=== PATIENT | male | born 1955 | race Two or more races ===

== ENCOUNTER 2023-02-17 10:32 | Emergency (ER) | payer MEDICARE ==
[2023-02-17 11:05] LABS: HEMATOCRIT 38.9 % (38.4-49.7); HEMOGLOBIN 13.3 g/dL (12.9-16.9); MEAN CORPUSCULAR HEMOGLOBIN 32.6 pg (31.6-35.5); MEAN CORPUSCULAR HGB CONC 34.2 g/dL (31.6-35.5); MEAN CORPUSCULAR VOLUME 95.3 fL (81.4-99.0); RED BLOOD CELL COUNT 4.08 M/uL (4.14-5.76); WHITE BLOOD CELL COUNT,WBC 7.3 K/uL (3.2-11.0)
[2023-02-17] MEDS: Nitroglycerin 0.4 MG Tab.SL SL PRN ×3 (11:14→11:26)
[2023-02-17 11:21] LABS: INR 2.1; PROTHROMBIN TIME 20.1 sec (9.2-10.6)
[2023-02-17 11:33] LABS: ALANINE AMINOTRANSFERASE,ALT 22 U/L (12-78); ALBUMIN 3.3 g/dL (3.4-5.0); ALKALINE PHOSPHATASE 82 U/L (46-116); ANION GAP 15.4 mmol/L (5.0-14.0); ASPARTATE AMNIOTRANSFERASE,AST 16 U/L (15-37); BILIRUBIN TOTAL 0.7 mg/dL (0.2-1.0); BLOOD UREA NITROGEN,BUN 11 mg/dL (7-18); CALCIUM 8.8 mg/dL (8.5-10.1); CARBON DIOXIDE,CO2 25 mmol/L (21-32); CHLORIDE,CL 102 mmol/L (100-108); CREATININE 0.9 mg/dL (0.8-1.3); EST CRCL DRUG DOSING (CG) 97.78 mL/min; ESTIMATED GFR 94 mL/min (>60); GLUCOSE RANDOM 265 mg/dL (74-106); POTASSIUM,K 4.4 mmol/L (3.6-5.2); PRO B-TYPE NATRIUR PEPT,BNPPRO 109 pg/mL (5-125); PROTEIN TOTAL,TP 6.7 g/dL (6.4-8.2); SODIUM,NA 138 mmol/L (140-148)
== END 2023-02-17 12:14 | disposition home or self-care (01) ==
LOC: JP.ED 10:32
DX: I20.0 Unstable angina (principal); E78.00 Pure hypercholesterolemia, unspecified; I10 Essential (primary) hypertension; I25.2 Old myocardial infarction; E10.9 Type 1 diabetes mellitus without complications; E66.9 Obesity, unspecified; Z68.31 Body mass index [BMI] 31.0-31.9, adult; Z79.02 Long term (current) use of antithrombotics/antiplatelets; Z79.01 Long term (current) use of anticoagulants; Z79.899 Other long term (current) drug therapy
CPT/HCPCS: 36415; 71045; 80053; 83605; 83880; 84484; 85027; 85379; 85610; 93005; 99285; A9270

== ENCOUNTER 2023-02-27 20:53 | Emergency (ER) | payer MEDICARE ==
[2023-02-27 21:54] LABS: BASOPHILS ABSOLUTE AUTO 0.06 K/uL (0.00-0.10); BASOPHILS PERCENT AUTO 0.5 % (0.1-1.3); EOSINOPHILS ABSOLUTE AUTO 0.45 K/uL (0.00-0.40); EOSINOPHILS PERCENT AUTO 3.5 % (0.0-5.4); HEMATOCRIT 41.6 % (38.4-49.7); HEMOGLOBIN 14.4 g/dL (12.9-16.9); IMMATURE GRAN ABSOLUTE AUTO 0.07 K/uL (0.00-0.23); IMMATURE GRAN PERCENT AUTO 0.6 % (0.0-0.7); LYMPHOCYTES ABSOLUTE AUTO 2.32 K/uL (0.8-3.3); LYMPHOCYTES PERCENT AUTO 18.3 % (11.4-47.7); MEAN CORPUSCULAR HEMOGLOBIN 32.4 pg (31.6-35.5); MEAN CORPUSCULAR HGB CONC 34.6 g/dL (31.6-35.5); MEAN CORPUSCULAR VOLUME 93.5 fL (81.4-99.0); MONOCYTES ABSOLUTE AUTO 0.79 K/uL (0.20-0.90); MONOCYTES PERCENT AUTO 6.2 % (3.3-12.6); NEUTROPHILS PERCENT AUTO 70.9 % (40.0-78.1); PLATELET COUNT,PLT 330 K/uL (130-375); RED BLOOD CELL COUNT 4.45 M/uL (4.14-5.76); WHITE BLOOD CELL COUNT,WBC 12.7 K/uL (3.2-11.0)
[2023-02-27] MEDS ORDERED: Phytonadione 5 MG in Sodium Chloride 0.9% 50 ML IV ONE (22:12)
[2023-02-27] MEDS ORDERED: Sodium Chloride 0.9% 10 ML Syringe FLUSH PRN (22:17)
[2023-02-27 22:43] LABS: PROTHROMBIN TIME 77.6 sec (9.2-10.6)
[2023-02-27 22:46] LABS: INR 8.8
== END 2023-02-27 23:42 | disposition home or self-care (01) ==
LOC: JP.ED 20:53
DX: S70.361A Insect bite (nonvenomous), right thigh, initial encounter (principal); L03.115 Cellulitis of right lower limb; R79.1 Abnormal coagulation profile; I10 Essential (primary) hypertension; E78.00 Pure hypercholesterolemia, unspecified; I25.2 Old myocardial infarction; M19.90 Unspecified osteoarthritis, unspecified site; E10.40 Type 1 diabetes mellitus with diabetic neuropathy, unspecified; E66.9 Obesity, unspecified; Z68.32 Body mass index [BMI] 32.0-32.9, adult; Z79.01 Long term (current) use of anticoagulants; Z79.4 Long term (current) use of insulin; Z79.899 Other long term (current) drug therapy; Z79.02 Long term (current) use of antithrombotics/antiplatelets; W57.XXXA Bitten or stung by nonvenomous insect and other nonvenomous arthropods, initial encounter
CPT/HCPCS: 36415; 85025; 85610; 96365; 99283-25; J3430; J3490